=== PATIENT | male | born 1960 ===

== ENCOUNTER 2018-08-22 12:17 | Inpatient (IN) | payer BC ==
[~2018-08-22] VITALS: Ht 182.9 cm; Wt 181.6 kg
[2018-10-14] VITALS (12 sets, daily range): BP systolic 96–156; BP diastolic 46–88; PULSE 51–98; TEMP 97.4–99.2
[2018-10-14] MEDS ORDERED: ASPIRIN CAFFEINE PO (02:01)
[2018-10-14] MEDS ORDERED: PRINIVIL40 MG PO (02:01)
[2018-10-14] MEDS ORDERED: MOTRIN 200200 MG/TAB PO (02:02)
[2018-10-14] MEDS ORDERED: ZOCOR 20MG20 MG PO (02:03)
--- NOTE | 2018-10-14 06:28 | NUR ---
Patient arrived and admitted at 0520. Right knee scrubbed with hibaclens, IV started in right hand after unsuccessful attempt in left forearm. Pulses marked and site initialed. IVF started and pre-op medications given per orders. Keven hose applied to left leg.
--- NOTE | 2018-10-14 07:09 | NUR ---
pt to surgery per bed with
--- NOTE | 2018-10-14 11:38 | NUR ---
PT TO ROOM 331 PER BED WITH REPORT FROM NILDA HAYNES. PT IS A/O X3, LUNGS CLEAR, BOWEL SOUNDS PRESENT. PEDAL PULSES PALPABLE. DRESSING TO RIGHT KNEE CDI WITH AQUACEL OVER INCISION. KNEE BRACE ON, ICE PACK TO AFFECTED LEG. PT DENIES PAIN. ORIENTED PATIENT AND FAMILY TO ROOM.
--- NOTE | 2018-10-14 13:07 | NUR ---
SHIVAM met with the patient to discuss a discharge plan. The patient lives in [place] with his , Maria Del Rosario. The patient has a cane and walker but does not need them to ambulate. The patient reports he has outpatient therapy set up at [facility] in [place]. The patient reports independence with ADLs. The patient's PCP is Dr. Cristino Manzanares. The patient receives his medications from [facility] in [place]. The patient reports no difficulties obtaining his medications. The patient does not have advanced directives in the EMR. However, he was interested in obtaining a DPOA-HC form. SHIVAM provided the form. The patient plans to return home upon discharge. There are no additional needs at this time.
--- NOTE | 2018-10-14 14:24 | NUR ---
PT VERY APNIC WHILE SLEEPING. O2 @3LPNC PLACED. OBSERVED PATIENT DROPPING INTO MID 70'S O2 SATS WHILE SLEEPING.
--- NOTE | 2018-10-14 20:00 | NUR ---
REPORT RECEIVED. 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 ASSESSMENT COMPLETE. VS STABLE. DRESSING TO RIGHT KNEE-AQUACELL- ONE SMALL DIME SIZE AMOUNT OF DRAINAGE. AMAN HOSE ON-SCDS ON. UP TO AMBULATE IN HALLWAY AT THIS TIME. AMBULATED APPROX 50 FEET. TOLERATED WELL. IMMOBILIZER ON-RIGHT LOWER EXTREMITY ELEVATED ON PILLOW. FRESH ICE APPLIED. DENIES NEEDS AT THIS TIME. CALL LIGHT WITHIN REACH. BED IN LOW POSITION. WHEELS LOCKED. WILL MONITOR.
--- NOTE | 2018-10-14 21:30 | NUR ---
CLERICAL SPECIALIST PROVIDER PAGED DUE TO INCREASED PAIN LEVEL NOT CONTROLLED BY ROXICODONE AND MORPHINE. ORDER RECEIVED TO DC SCHEDULED TYLENOL ORDER AND START NORCO. NORCO 2 TABS GIVEN PO. WILL MONITOR.
--- NOTE | 2018-10-15 04:23 | NUR ---
HAS RESTED BETTER LATER THIS SHIFT AFTER GETTING PAIN UNDER CONTROL. VS REMAIN STABLE. AQUACELL TO RIGHT KNEE WITH SMALL DRAINAGE SPOT-HAS NOT INCREASED. IMMOBOLIZER ON. FRESH ICE APPLIED. DENIES NEEDS. WILL MONITOR.
[2018-10-15 06:03] LABS: HEMATOCRIT 40.4 % (42.0-52.0); HEMOGLOBIN 12.9 g/dl (13.5-18.0)
[2018-10-15 06:18] VITALS: BP 155/94; PULSE 99; TEMP 98.9
--- NOTE | 2018-10-15 09:02 | NUR ---
PT OUT TO [facility] FOR THERAPY WITH [facility] X1. PT FELT LIGHT HEADDED, SEATED IN RECLINER AND RETURN TO ROOM WITH THERAPY AND NURSING. PT REPORTED FEELING BETTER AFTER RESTING BREIFLY. DRESSING TO RIGHT KNEE CDI. TEDS ON BILATERALLY. PT DENIES NEED FOR PAIN MEDS AT THIS TIME.
[2018-10-15 09:21] VITALS: BP 154/75; PULSE 93; TEMP 98.5
--- NOTE | 2018-10-15 09:26 | NUR ---
Initial visit; Patient and family thanked [employer] for looking in on him and letting him know of the availability of [facility] at [place].
[2018-10-15 12:30] VITALS: BP 157/80; PULSE 92; TEMP 98.2
--- NOTE | 2018-10-15 15:23 | NUR ---
ENGLE CATHETER DISCONTINUED PER ORDERS, PT TOLERATED WELL.
[2018-10-15 16:49] VITALS: BP 151/74; PULSE 99; TEMP 98.2
--- NOTE | 2018-10-15 18:56 | NUR ---
Report to Ramu HAYNES.
--- NOTE | 2018-10-15 19:45 | NUR ---
Pt. sitting up in bed at this time. Pt. is A&OX3, assessment complete. INT to rt. hand patent. Dressing to rt. knee with minimal drainage noted. Pt. denies pain or other needs at this time. Call light within reach.
[2018-10-15 20:04] VITALS: BP 152/76; PULSE 98; TEMP 97.9
[2018-10-16 00:57] VITALS: BP 137/75; PULSE 98; TEMP 98.2
[2018-10-16 04:00] VITALS: BP 153/66; PULSE 53; TEMP 98.3
[2018-10-16 06:47] LABS: HEMATOCRIT 38.7 % (42.0-52.0); HEMOGLOBIN 12.1 g/dl (13.5-18.0)
--- NOTE | 2018-10-16 06:50 | NUR ---
awake resting in bed, bedside shift report received from DALLAS Guallpa
--- NOTE | 2018-10-16 07:11 | NUR ---
full assessment completed, see interventions for further info, denies needs
--- NOTE | 2018-10-16 08:00 | NUR ---
resting in bed and denies needs at this time
[2018-10-16 08:32] VITALS: BP 116/75; PULSE 93; TEMP 98.4
--- NOTE | 2018-10-16 09:00 | NUR ---
ambulated out to ang with physical therapy for group exercises
--- NOTE | 2018-10-16 10:01 | NUR ---
ambulated back to room with therapy, c/o pain to right knee and medicated with hydrocodone 7.5mg 2 tabs by DALLAS Mcconnell
--- NOTE | 2018-10-16 10:50 | NUR ---
sitting up in chair, states the pain pills that were given has helped a lot, denies needs
[2018-10-16 11:46] VITALS: BP 108/70; PULSE 96; TEMP 98.5
--- NOTE | 2018-10-16 12:51 | NUR ---
assisted up to bathroom, moved with slow gait but some difficulty getting feet to move due to discomfort
--- NOTE | 2018-10-16 12:52 | NUR ---
ambulating in ang now with therapist and therpaist states he is moving better now and is much better than this am
--- NOTE | 2018-10-16 15:07 | NUR ---
appears to be sleeping, in bed with lights off, eyes closed, resp quiet and easy
--- NOTE | 2018-10-16 15:59 | NUR ---
aquacel dressing to right knee removed, incision CD&I, steri strips placed and covered incidion with airstrip dressing, denies needs
[2018-10-16 16:58] VITALS: BP 119/71; PULSE 104; TEMP 98.8
--- NOTE | 2018-10-16 18:00 | NUR ---
in bed and appears to be sleeping
--- NOTE | 2018-10-16 18:48 | NUR ---
bedside report given to DALLAS Guallpa
[2018-10-16 20:00] VITALS: BP 114/74; PULSE 97; TEMP 98.1
--- NOTE | 2018-10-16 20:45 | NUR ---
Pt. sitting up in bed at this time. Pt. is A&OX3, assessment complete. INT to rt. hand patent. Pt. reports pain at a 5 on pain scale, will give pain meds per orders. Pt. denies further needs at this time. Call light within reach.
[2018-10-17] VITALS: BP 105/66; PULSE 94; TEMP 98.2
[2018-10-17] MEDS ORDERED: ASPI325T6 PO (06:42)
[2018-10-17] MEDS ORDERED: NORCO 325 MG-7.1 TAB PO (06:43)
[2018-10-17] MEDS ORDERED: TYLENOL 500MG500 MG PO (06:44)
[2018-10-17] MEDS ORDERED: ROXICODONE 55 MG/TAB PO (06:44)
[2018-10-17] MEDS ORDERED: COLACE 100100 MG/CAP PO (06:44)
[2018-10-17 07:45] VITALS: BP 117/68; PULSE 97; TEMP 98.1
[2018-10-17 08:18] VITALS: BP 97/61; PULSE 98; TEMP 98.1
--- NOTE | 2018-10-17 11:24 | NUR ---
PT UP WITH ASSIST. PAIN CONTROLLED WITH PO MEDS.
[2018-10-17 12:29] VITALS: BP 133/71; PULSE 91; TEMP 97.5
== END 2018-10-17 14:48 | disposition home or self-care (01) | DRG 470 ==
LOC: JCC 10-14 05:11
PROVIDERS: ADMIT Orthopaedic Surgery
PROC: 0SRC0J9 Replacement of Right Knee Joint with Synthetic Substitute, Cemented, Open Approach (ICD-10-PCS; principal; 2018-10-14 07:30)
DX: M17.11 Unilateral primary osteoarthritis, right knee (principal); Z88.0 Allergy status to penicillin; I10 Essential (primary) hypertension; E78.00 Pure hypercholesterolemia, unspecified
CPT/HCPCS: A4314; A9284; C1776; J1885; J2250; J2270; J2405; J2704; J3010; J7030; J7120

== ENCOUNTER → 2018-09-22 | Outpatient (CLI) | payer BC | LOC: COL.LAB 13:30 | DX: Z01.812 Encounter for preprocedural laboratory examination (principal) ==

== ENCOUNTER → 2022-02-06 | Outpatient (CLI) | payer BC ==
[~2022-02-06] VITALS: Ht 183 cm; Wt 195.5 kg
[~2022-02-06] MED LIST: ASPI325T6 PO; ASPIRIN 81M81 MG/TA2 PO; ASPIRIN CAFFEINE PO; COLACE 100100 MG/CAP PO; ELIQUIS 2.5 PO; MOTRIN 200200 MG/TAB PO; NORCO 325 MG-7.1 TAB PO; PRINIVIL40 MG PO; ROXICODONE 55 MG/TAB PO; TYLENOL 500MG500 MG PO; ZOCOR 20MG20 MG PO; ZYLOPRIM 300MG300 MG PO
[2022-02-06 10:11] VITALS: BP 147/78; PULSE 87; TEMP 97.6
[2022-02-06 12:12] VITALS: BP 144/72; PULSE 101
[2022-02-06 12:13] VITALS: BP 145/77; PULSE 94
[2022-02-06 12:14] VITALS: BP 142/81; PULSE 92
[2022-02-06 12:15] VITALS: BP 142/78; PULSE 89
== END ==
LOC: COL.CARD 09:46
DX: R07.9 Chest pain, unspecified (principal)
CPT/HCPCS: A9500; J2785